=== PATIENT | female | born 1955 | race Caucasian/White ===

== ENCOUNTER → 2016-12-13 | Outpatient (REF) | payer BC ==
[2016-12-13 15:32] LABS: BASO % 0.3 % (0.0-1.0); EOS % 0.6 % (0.0-3.0); LARGE UNSTAINED CELL # 0.1 K/mm3 (0.0-0.4); LARGE UNSTAINED CELL % 1.2 % (0.0-4.0); MEAN CORPUSCULAR HEMOGLOBIN 32.3 pg (27.0-33.0); MEAN CORPUSCULAR VOLUME 97.7 fl (80.0-96.0); MONO # 0.5 K/mm3 (0.0-0.8); MONO % 5.9 % (0.0-5.0); NEUTROPHILS # 5.9 K/mm3 (1.8-7.7); PLATELET COUNT, AUTOMATED 420 k/mm3 (150-450); RED CELL DISTRIBUTION WIDTH 11.9 % (11.5-14.5); WHITE BLOOD COUNT 8.4 K/mm3 (4.0-10.0)
[2016-12-13 15:44] LABS: ANION GAP 5 MEQ/L (8-16); BLOOD UREA NITROGEN 16 MG/DL (7-18); CALCIUM LEVEL 9.2 MG/DL (8.8-10.2); CARBON DIOXIDE LEVEL 29 MEQ/L (21-32); CHLORIDE LEVEL 105 MEQ/L (98-107); CREATININE FOR GFR 0.94 MG/DL (0.55-1.02); GLOMERULAR FILTRATION RATE > 60.0 (>45); GLUCOSE, FASTING 121 MG/DL (80-110); POTASSIUM SERUM 4.4 MEQ/L (3.5-5.1); SODIUM LEVEL 139 MEQ/L (136-145)
== END ==
LOC: M LAB REF 14:47
PROVIDERS: ATTEND Physician Assistant Medical
DX: R91.8 Other nonspecific abnormal finding of lung field (principal)

== ENCOUNTER → 2017-02-16 | Outpatient (CLI) | payer BC ==
[~2017-02-16] MED LIST: ISOVUE-370 76% 100ML VIAL (Q9967) As Ordered ONE
--- NOTE | 2017-02-16 18:11 | REP ---
CT study of the chest with IV contrast: History: New opacities right middle lobe. Comparison chest x-rays from January 09, 2014. CT contrast dose: 75 ml of Isovue [address] findings: There are emphysematous changes in the upper lobes bilaterally, right a little more prominent than left. There is some linear fibrosis in both lower lobes and in the lingular segment of the left upper lobe. There is no evidence of infiltrate, mass lesion or significant nodule. Tracheobronchial tree is unremarkable. No pleural or pericardial effusion is seen. No hilar or mediastinal mass or adenopathy is observed. There are small granular gallstones in the dependent portion of the gallbladder. No adrenal lesion is seen. There is a small simple cyst in the upper pole of the right kidney measuring 1.7 cm. No extrathoracic mass or adenopathy is seen. No bony destructive lesion is seen. Impression: Bibasilar linear fibrotic changes. Emphysematous changes in the upper lobes. Cholelithiasis. Otherwise no significant abnormality. Signed by Jaxson Zhou MD 02/16/2017 07:00 P
== END ==
LOC: M RAD 13:20
PROVIDERS: ATTEND Physician Assistant Medical
DX: J84.10 Pulmonary fibrosis, unspecified (principal); K80.20 Calculus of gallbladder without cholecystitis without obstruction; J43.9 Emphysema, unspecified
CPT/HCPCS: 71260; Q9967

== ENCOUNTER → 2017-06-27 | Outpatient (CLI) | payer BC ==
--- NOTE | 2017-06-27 13:33 | REPMRS ---
Patient History The patient states she had a clinical breast exam in 2016. Patient is postmenopausal, has history of other cancer at age 33, and had first child at age 34. Family history of unknown cancer in brother at age 65. Took hormonal contraceptives for 16 years. Digital Mammo Screening Bilat: June 27, 2017 - Exam #: [id number] Bilateral CC and MLO view(s) were taken. Technologist: Consuelo Potts, Technologist Prior study comparison: June 28, 2016, bilateral digital mammo screening bilat performed at [facility]. June 25, 2015, bilateral digital mammo screening bilat performed at [facility]. FINDINGS: There are scattered fibroglandular densities. There has been no change in the appearance of the mammogram from the prior studies. There is a mild amount of residual fibroglandular tissue which is fairly symmetric. There is no interval development of dominant mass, architectural distortion, or clustered microcalcification suggestive of malignancy. ASSESSMENT: BI-RADS/ACR category 1 mammogram. Negative. Recommendation Routine screening mammogram in 1 year (for women over age 40). This mammogram was interpreted with the aid of an FDA-approved computer-aided dectection system. Electronically Signed By: David Palacios MD 06/27/17 [id number]
== END ==
LOC: M RAD 11:06
DX: Z12.31 Encounter for screening mammogram for malignant neoplasm of breast (principal)

== ENCOUNTER 2018-01-10 15:44 | Emergency (ER) | payer OTHER, BC | END 2018-01-10 18:55 | disposition home or self-care (01) | LOC: M ED 15:44 | DX: S70.02XA Contusion of left hip, initial encounter (principal); S93.401A Sprain of unspecified ligament of right ankle, initial encounter; W18.49XA Other slipping, tripping and stumbling without falling, initial encounter; Y92.410 Unspecified street and highway as the place of occurrence of the external cause; M62.838 Other muscle spasm; M65.262 Calcific tendinitis, left lower leg; Z88.2 Allergy status to sulfonamides; Z88.1 Allergy status to other antibiotic agents; Z87.891 Personal history of nicotine dependence; Z79.899 Other long term (current) drug therapy | CPT/HCPCS: 73610 ==

== ENCOUNTER 2018-01-18 11:42 | Emergency (ER) | payer OTHER, BC ==
[2018-01-18] MEDS: KETOROLAC TROMETHAMINE 10 MG TAB PO (13:25)
== END 2018-01-18 15:21 | disposition home or self-care (01) ==
LOC: M ED 11:42
DX: S86.011A Strain of right Achilles tendon, initial encounter (principal); W19.XXXA Unspecified fall, initial encounter; Y92.480 Sidewalk as the place of occurrence of the external cause; Y93.9 Activity, unspecified; Y99.9 Unspecified external cause status; K21.9 Gastro-esophageal reflux disease without esophagitis; Z87.891 Personal history of nicotine dependence; Z79.899 Other long term (current) drug therapy; Z88.2 Allergy status to sulfonamides
CPT/HCPCS: 73610

== ENCOUNTER → 2018-01-22 | Outpatient (CLI) | payer OTHER, BC | LOC: M RAD 12:30 | DX: S86.011A Strain of right Achilles tendon, initial encounter (principal); X58.XXXA Exposure to other specified factors, initial encounter; Y92.89 Other specified places as the place of occurrence of the external cause; R93.7 Abnormal findings on diagnostic imaging of other parts of musculoskeletal system | CPT/HCPCS: 73721 ==

== ENCOUNTER → 2018-07-05 | Outpatient (CLI) | payer BC | LOC: M RAD 09:42 | DX: Z12.31 Encounter for screening mammogram for malignant neoplasm of breast (principal) | CPT/HCPCS: 77067 ==

== ENCOUNTER → 2018-10-09 | Outpatient (CLI) | payer OTHER ==
[~2018-10-09] MED LIST changes: -ISOVUE-370 76% 100ML VIAL (Q9967) As Ordered ONE; +NAPR-885 PO; +NORCOTAB PO; +SPIR50TA4 PO
--- NOTE | 2018-10-09 16:41 | REP ---
MRI right ankle without contrast: History: Strain of the right Achilles tendon. Rule out incomplete healing. Comparison MRI study of the right ankle is from January 22, 2018. Comparison radiographs are from January 19, 2080. Radiographs in the prior MR study show evidence of severe chronic Achilles tendinosis with multiple foci of ossification within the tendon and at the musculotendinous junction. There was a complete tear between two ossific foci documented radiographically. Technique: Axial, coronal and sagittal imaging planes are utilized for T1 and T2-weighted scans obtained with and without fat saturation in the usual fashion. MRI findings: There is marked thickening of the Achilles tendon again noted. There are three levels of intra substance ossicle formation due to chronic Achilles tendinosis tendonitis change. These are located 1.6, 4.8, and 10 cm above the posterosuperior calcaneal cortex. The complete tear as seen previously was located between the two more proximal foci. The entire Achilles tendon remains rather thickened. There is T2 hyperintense fluid signal in a triangular pattern within the substance of the tendon at the level of the tear site. This signal appears much more organized than previously. The abnormal T2 hyperintense signal area measures 23 mm in craniocaudal span by 6 mm anteroposterior by 7 mm medial to lateral dimension. Surrounding this, there is intact low T1, low T2 signal intensity tendon material. No other fluid signal intensity material is seen in the thickened tendon. The upper portion of the most proximal ossification is not included in the field of view. These two intra-tendon ossicles are by 3.7 cm of vertical span. This is similar to the radiographs from 01/18/2018 and may be slightly increased from the distance on January 22, 2018 MRI (3.1 cm). Impression: Advanced chronic ossific Achilles tendinosis. Status post complete tear in the proximal Achilles tendon. There is residual T2 hyperintense material within the tear site in the Achilles tendon as described above consistent with incomplete healing. Electronically Signed by Jaxson Zhou MD 10/09/2018 07:22 P
== END ==
LOC: M RAD 12:39
PROVIDERS: ATTEND Orthopaedic Surgery
DX: S86.011D Strain of right Achilles tendon, subsequent encounter (principal); X58.XXXA Exposure to other specified factors, initial encounter; Y92.9 Unspecified place or not applicable; Y93.9 Activity, unspecified; Y99.9 Unspecified external cause status; M76.61 Achilles tendinitis, right leg

== ENCOUNTER → 2019-07-07 | Outpatient (REF) | payer BC ==
[~2019-07-07] MED LIST changes: +HYDR-3715 PO; -NORCOTAB PO
[2019-07-11 14:17] LABS: HPV HYBRID CAPTURE II Negative (Negative)
== END ==
LOC: M LAB LCGH 12:18
PROVIDERS: ATTEND Nurse Practitioner Adult Health
DX: Z12.4 Encounter for screening for malignant neoplasm of cervix (principal)
CPT/HCPCS: 87624; G0123

== ENCOUNTER → 2019-07-09 | Outpatient (CLI) | payer BC, OTHER ==
--- NOTE | 2019-07-09 11:12 | REPMRS ---
Patient History The patient states she had a clinical breast exam in 2018. Family history of unknown cancer at age 65 in brother. Took hormonal contraceptives for 16 years. Digital Mammo Screening Bilat: July 09, 2019 - Exam #: [id number] Bilateral CC and MLO view(s) were taken. Technologist: Debra Oneill Technologist Prior study comparison: July 05, 2018, bilateral digital mammo screening bilat performed at [facility]. June 27, 2017, bilateral digital mammo screening bilat performed at [facility]. June 28, 2016, bilateral digital mammo screening bilat performed at [facility]. FINDINGS: There are scattered fibroglandular densities. There has been no change in the appearance of the mammogram from the prior studies. There is a mild amount of scattered fibroglandular density which is fairly symmetric. There is no interval development of dominant mass, architectural distortion, or grouped microcalcification suggestive of malignancy. 3-D tomosynthesis shows no additional findings. Assessment: BI-RADS/ACR category 1 mammogram. Negative Mammogram. Recommendation Routine screening mammogram of both breasts in 1 year (for women over age 40). This patient's Lifetime Breast Cancer Risk is estimated at 9.8 %. This mammogram was interpreted with the aid of an FDA-approved computer-aided dectection system. Electronically Signed By: Donald Zhou MD 07/09/19 [id number]
== END ==
LOC: M RAD 09:50
PROVIDERS: ATTEND Nurse Practitioner Adult Health
DX: Z12.31 Encounter for screening mammogram for malignant neoplasm of breast (principal); Z79.899 Other long term (current) drug therapy; Z80.9 Family history of malignant neoplasm, unspecified

== ENCOUNTER → 2020-08-05 | Outpatient (CLI) | payer BC ==
--- NOTE | 2020-08-05 16:16 | REPMRS ---
Patient History The patient states she had a clinical breast exam in August 2020.Family history of unknown cancer at age 65 in brother. Took hormonal contraceptives for 16 years. Digital Woman Screen Mammo: August 05, 2020 - Exam #: [id number] Bilateral CC and MLO view(s) were taken. Technologist: Zoe Carr, Technologist Prior study comparison: July 09, 2019, bilateral digital mammo screening bilat, performed at [facility]. July 05, 2018, bilateral digital mammo screening bilat, performed at [facility]. June 27, 2017, bilateral digital mammo screening bilat, performed at [facility]. FINDINGS: The breast tissue is almost entirely fat. The Volpara volumetric breast density category is: A. There has been no change in the appearance of the mammogram from the prior studies. There is no interval development of dominant mass, architectural distortion, or grouped microcalcification typical of malignancy. 3-D tomosynthesis shows no additional findings. Assessment: BI-RADS/ACR category 1 mammogram. Negative Mammogram. Recommendation Routine screening mammogram of both breasts in 1 year (for women over age 40). This patient's [facility] Lifetime Breast Cancer RIsk is estimated at 9.4 %. This mammogram was interpreted with the aid of an FDA-approved computer-aided dectection system. Electronically Signed By: Donald Zhou MD 08/05/20 [id number]
== END ==
LOC: M WHC 13:54
PROVIDERS: ATTEND Nurse Practitioner Family
DX: Z12.31 Encounter for screening mammogram for malignant neoplasm of breast (principal)

== ENCOUNTER → 2020-12-23 | Outpatient (REF) | LOC: M LABSMTC 11:14 | PROVIDERS: ATTEND Pediatrics | DX: Z11.52 Encounter for screening for COVID-19 (principal) ==

== ENCOUNTER → 2021-02-03 | Outpatient (CLI) | payer BC ==
[2021-02-03 06:55] LABS: HEMATOCRIT 38.5 % (36.0-47.0); HEMOGLOBIN 12.7 g/dl (12.0-15.5); MEAN CORPUSCULAR HEMOGLOBIN 33.1 pg (27.0-33.0); MEAN CORPUSCULAR VOLUME 100.3 fl (80.0-96.0); PLATELET COUNT, AUTOMATED 432 10^3/uL (150-450); RED BLOOD COUNT 3.84 10^6/uL (4.00-5.40); WHITE BLOOD COUNT 9.4 10^3/uL (4.0-10.0)
[2021-02-03 07:30] LABS: ALBUMIN 3.6 GM/DL (3.2-5.2); BILIRUBIN,TOTAL 0.3 MG/DL (0.2-1.0); CALCIUM LEVEL 9.4 MG/DL (8.8-10.2); CHOLESTEROL RISK RATIO 3.354 (<5); CREATININE FOR GFR 1.05 MG/DL (0.55-1.30); GLOMERULAR FILTRATION RATE 56.2 (>45); POTASSIUM SERUM 4.8 MEQ/L (3.5-5.1); THYROID STIMULATING HORMONE 5.69 uIU/ML (0.358-3.740); TOTAL PROTEIN 7.7 GM/DL (6.4-8.2)
--- NOTE | 2021-02-03 08:00 | REP ---
INDICATION: COPD COMPARISON: 01/09/2014 TECHNIQUE: PA and lateral. FINDINGS: The mediastinum and cardiac silhouette are normal. The lung goldstein are clear and without acute consolidation, effusion, or pneumothorax. The skeletal structures are intact and normal. IMPRESSION: No acute cardiopulmonary process. <Electronically signed by Ernesto Loving > 02/03/21 0753
[2021-02-03 09:42] LABS: HEMOGLOBIN A1c 5.8 %
[2021-02-03 10:34] LABS: TOTAL 25(OH) VITAMIN D 28.4 NG/ML (30.0-100.0)
== END ==
LOC: M LAB 05:59
PROVIDERS: ATTEND Family Medicine
DX: J44.9 Chronic obstructive pulmonary disease, unspecified (principal); R53.83 Other fatigue; E03.9 Hypothyroidism, unspecified

== ENCOUNTER → 2021-03-31 | Outpatient (CLI) | payer BC ==
[2021-03-31 07:26] LABS: HEMOGLOBIN A1c 5.9 %
[2021-03-31 07:32] LABS: THYROID STIMULATING HORMONE 11.5 uIU/ML (0.358-3.740)
[2021-03-31 08:06] LABS: TOTAL 25(OH) VITAMIN D 30.9 NG/ML (30.0-100.0)
== END ==
LOC: M LAB 06:16
PROVIDERS: ATTEND Family Medicine
DX: R53.83 Other fatigue (principal); E03.9 Hypothyroidism, unspecified

== ENCOUNTER → 2021-08-09 | Outpatient (REF) | payer BC | LOC: M SFHCWAGY 13:07 | PROVIDERS: ATTEND Nurse Practitioner Women's Health | DX: Z12.4 Encounter for screening for malignant neoplasm of cervix (principal); Z77.9 Other contact with and (suspected) exposures hazardous to health; N88.8 Other specified noninflammatory disorders of cervix uteri | CPT/HCPCS: 87624; G0123 ==

== ENCOUNTER → 2021-08-09 | Outpatient (CLI) | payer BC ==
--- NOTE | 2021-08-09 12:35 | REPMRS ---
Patient History The patient states she had a clinical breast exam in August 09, 2021. Patient is postmenopausal, has history of other cancer at age 33, and had first child at age 34. No known family history of cancer. Took hormonal contraceptives for 16 years. complaints today. Patient has signed MRS History Sheet. Digital Woman Screen Mammo: August 09, 2021 - Exam #: [id number] Bilateral CC and MLO view(s) were taken. Technologist: RT Ana Prior study comparison: August 05, 2020, bilateral digital woman screen mammo performed at [facility]. July 09, 2019, bilateral digital mammo screening bilat, performed at [facility]. FINDINGS: The breast tissue is almost entirely fat. Screening. Digital screening (2D) mammography was performed bilaterally in the CC and MLO projections. Additionally, breast tomosynthesis (3D mammography) was performed bilaterally in the CC and MLO projections. Todays exam was compared to the prior exam/exams. By history, the patient has no complaints of a palpable breast abnormality or other significant breast complaints. The Volpara volumetric breast density category is A, the breasts are almost entirely fatty. The breasts are unchanged in size and shape. There are stable, benign, intramammary lymph nodes, on the left. There are no arnel-soft tissue densities or spiculated masses. There is no internal architectural distortion. There are no suspicious arnel-calcific clusters. Skin thickening or nipple retraction is not present. IMPRESSION: BI-RADS Category 2- Benign Findings. There is no evidence of malignant alteration of the breasts. Followup examination recommended in one year. This mammogram [facility],an FDA approved computer aided detection system for mammography. The lifetime Tyrer-Cuzick score is 9.0% Negative x-ray reports should not delay surgical consultation if a dominant or clinically suspicious mass is present. Not all breast cancers can be identified by mammography. Therefore, we recommend that you continue to perform regular breast self-examination and physical examination and then promptly contact your physician of any concerns or changes. Adenosis and dense breasts may obscure an underlying neoplasm. No significant changes when compared with prior studies. Assessment: BI-RADS/ACR category 2 mammogram. Benign Findings. Recommendation Routine screening mammogram of both breasts in 1 year. Electronically Signed By: Neo Shahid MD 08/09/21 [id number]
== END ==
LOC: M WHC 10:07
PROVIDERS: ATTEND Nurse Practitioner Women's Health
DX: Z12.31 Encounter for screening mammogram for malignant neoplasm of breast (principal)

== ENCOUNTER → 2022-02-01 | Outpatient (CLI) | payer BC ==
[2022-02-01 11:55] LABS: HEMATOCRIT 39.1 % (36.0-47.0); HEMOGLOBIN 12.7 g/dl (12.0-15.5); MEAN CORPUSCULAR HEMOGLOBIN 32.2 pg (27.0-33.0); MEAN CORPUSCULAR HGB CONC 32.5 g/dl (32.0-36.5); PLATELET COUNT, AUTOMATED 409 10^3/uL (150-450); RED BLOOD COUNT 3.95 10^6/uL (4.00-5.40); WHITE BLOOD COUNT 7.4 10^3/uL (4.0-10.0)
[2022-02-01 12:27] LABS: ALBUMIN 3.7 GM/DL (3.2-5.2); BILIRUBIN,TOTAL 0.4 MG/DL (0.2-1.0); CALCIUM LEVEL 10.1 MG/DL (8.8-10.2); CREATININE FOR GFR 1.08 MG/DL (0.55-1.30); GLOMERULAR FILTRATION RATE 54.2 (>45); POTASSIUM SERUM 4.5 MEQ/L (3.5-5.1); THYROID STIMULATING HORMONE 1.06 uIU/ML (0.358-3.740); TOTAL PROTEIN 7.6 GM/DL (6.4-8.2)
[2022-02-01 14:09] LABS: HEMOGLOBIN A1c 5.8 %
== END ==
LOC: M RAD 10:29
PROVIDERS: ATTEND Family Medicine
DX: I10 Essential (primary) hypertension (principal); R53.83 Other fatigue

== ENCOUNTER 2022-05-09 09:58 | Emergency (ER) | payer BC ==
[~2022-05-09] VITALS: Ht 162.6 cm; Wt 69.5 kg
[2022-05-09 13:50] VITALS: BP 124/68
== END 2022-05-09 13:55 | disposition home or self-care (01) ==
LOC: M ED 09:58
DX: N81.3 Complete uterovaginal prolapse (principal); Z88.2 Allergy status to sulfonamides; Z79.899 Other long term (current) drug therapy

== ENCOUNTER → 2022-08-20 | Outpatient (CLI) | payer BC ==
[~2022-08-20] MED LIST changes: +CEPH500C PO; +PRED10PA PO; +SYNT88TA2 PO
== END ==
LOC: M LABSMTC 10:29
PROVIDERS: ATTEND Anesthesiology
DX: Z01.812 Encounter for preprocedural laboratory examination (principal); Z11.52 Encounter for screening for COVID-19

== ENCOUNTER 2022-08-23 10:31 | Day surgery (SDC) | payer BC ==
[~2022-08-23] VITALS: Ht 162.6 cm; Wt 68.4 kg
[~2022-08-23 10:31] MED LIST changes: +LR 1,000 ML IV SCH; +ceFAZolin SOD 2 GM in IV 1 EA IV ONE
[2022-08-23] MEDS ORDERED: LR 1,000 ML IV SCH ×2 (11:00→14:25)
[2022-08-23] MEDS ORDERED: PERC5TAB12 PO (11:02)
[2022-08-23 11:20] LABS: HEMATOCRIT 41.7 % (36.0-47.0); HEMOGLOBIN 13.7 g/dl (12.0-15.5); MEAN CORPUSCULAR HEMOGLOBIN 32.5 pg (27.0-33.0); MEAN CORPUSCULAR HGB CONC 32.9 g/dl (32.0-36.5); PLATELET COUNT, AUTOMATED 429 10^3/uL (150-450); RED BLOOD COUNT 4.21 10^6/uL (4.00-5.40); WHITE BLOOD COUNT 7.1 10^3/uL (4.0-10.0)
[2022-08-23 11:45] LABS: CALCIUM LEVEL 9.9 MG/DL (8.3-10.6); GLOMERULAR FILTRATION RATE 59.1 (>45); POTASSIUM SERUM 4.6 MMOL/L (3.5-5.1)
[2022-08-23] MEDS ORDERED: fentaNYL 100 MCG/2 ML INJECTION As Ordered ONE ×2 (11:57→14:36)
[2022-08-23] MEDS ORDERED: propofoL 200 MG/20 ML VIAL As Ordered ONE (11:57)
[2022-08-23] MEDS ORDERED: MIDAZOLAM INJ 2MG/2ML VIAL As Ordered ONE (11:57)
[2022-08-23] MEDS ORDERED: ONDANSETRON 4MG 2ML VIAL As Ordered ONE (11:58)
[2022-08-23] MEDS ORDERED: LIDOCAINE 2% 100MG/5ML SDV (FOR ANES.) As Ordered ONE (11:58)
[2022-08-23] MEDS ORDERED: VASOPRESSIN INJ 20UNITS/ML 1ML VIAL As Ordered ONE (13:06)
[2022-08-23] MEDS ORDERED: ePHEDrine SULFATE 25 MG/5 ML(5MG/ML) SYRINGE As Ordered ONE (13:38)
[2022-08-23] MEDS ORDERED: HYDROmorphone HCL 2MG/ML 1ML VIAL As Ordered ONE (13:52)
[2022-08-23] MEDS ORDERED: HYDROMORPHONE HCL 0.5 MG/ 0.5 ML SYRINGE IV PRN (14:25)
[2022-08-23] MEDS ORDERED: oxyCODONE 5MG TAB PO PRN (14:25)
[2022-08-23] MEDS ORDERED: ONDANSETRON 4MG 2ML VIAL IV PRN (14:25)
[2022-08-23] MEDS: fentaNYL 100 MCG/2 ML INJECTION IV PRN ×4 (14:38→14:54)
[2022-08-23] MEDS ORDERED: ESMOLOL INJ 100MG/10ML VIAL As Ordered ONE (15:13)
[2022-08-23 17:08] VITALS: BP 111/60
== END 2022-08-23 17:08 | disposition home or self-care (01) ==
LOC: UNDOADMIN 10:31 → M OR 10:31 → M SDC 10:31 → EDSTATUS 14:25 → M SDC 17:08
PROVIDERS: ADMIT Obstetrics & Gynecology; ATTEND Obstetrics & Gynecology
DX: N81.2 Incomplete uterovaginal prolapse (principal); E03.9 Hypothyroidism, unspecified; K21.9 Gastro-esophageal reflux disease without esophagitis; R51.9 Headache, unspecified; Z87.891 Personal history of nicotine dependence; Z79.899 Other long term (current) drug therapy; Z88.2 Allergy status to sulfonamides
CPT/HCPCS: 36415; 57250; 58260; 80048; 85027; 86850; 86900; 86901; 88302; 88307; J0690; J1100; J1170; J2250; J2405; J3010

== ENCOUNTER → 2022-10-25 | Outpatient (REF) | payer BC ==
[~2022-10-25] MED LIST changes: -LR 1,000 ML IV SCH; +PERC5TAB12 PO; -ceFAZolin SOD 2 GM in IV 1 EA IV ONE
== END ==
LOC: M LAB REF 16:15
PROVIDERS: ATTEND Obstetrics & Gynecology
DX: R30.0 Dysuria (principal); M54.50 Low back pain, unspecified

== ENCOUNTER → 2023-05-23 | Outpatient (CLI) | payer BC | LOC: M WHC 10:59 | PROVIDERS: ATTEND Family Medicine | DX: Z12.31 Encounter for screening mammogram for malignant neoplasm of breast (principal) ==

== ENCOUNTER → 2023-07-04 | Outpatient (CLI) | payer BC ==
[2023-07-04 11:30] LABS: HEMATOCRIT 39.2 % (36.0-47.0); HEMOGLOBIN 12.9 g/dl (12.0-15.5); MEAN CORPUSCULAR HEMOGLOBIN 33.1 pg (27.0-33.0); MEAN CORPUSCULAR HGB CONC 32.9 g/dl (32.0-36.5); MEAN CORPUSCULAR VOLUME 100.5 fl (80.0-96.0); PLATELET COUNT, AUTOMATED 450 10^3/uL (150-450); WHITE BLOOD COUNT 7.5 10^3/uL (4.0-10.0)
[2023-07-04 11:49] LABS: HEMOGLOBIN A1c 5.4 % (4.0-6.0)
[2023-07-04 12:05] LABS: ALBUMIN 3.6 G/DL (3.2-5.2); BILIRUBIN,TOTAL 0.5 MG/DL (0.3-1.2); CALCIUM LEVEL 9.9 MG/DL (8.3-10.6); CHOLESTEROL RISK RATIO 3.52 (<5); CREATININE FOR GFR 1.05 MG/DL (0.55-1.30); GLOMERULAR FILTRATION RATE 55.7 (>45); HDL CHOLESTEROL 73.5 MG/DL (>40); LDL CHOLESTEROL 149.3 MG/DL (<100); NON-HDL-C 185.5 MG/DL; POTASSIUM SERUM 4.7 MMOL/L (3.5-5.1); TOTAL PROTEIN 7.1 G/DL (5.7-8.2)
[2023-07-04 12:06] LABS: THYROID STIMULATING HORMONE 0.723 uIU/ML (0.55-4.78); TOTAL 25(OH) VITAMIN D 33.3 NG/ML (20.0-100.0)
== END ==
LOC: M LAB 10:10
PROVIDERS: ATTEND Family Medicine
DX: D64.9 Anemia, unspecified (principal); R53.83 Other fatigue; E03.9 Hypothyroidism, unspecified

== ENCOUNTER → 2024-05-29 | Outpatient (CLI) | payer BC | LOC: M WHC 15:50 | PROVIDERS: ATTEND Family Medicine | DX: Z12.31 Encounter for screening mammogram for malignant neoplasm of breast (principal) ==

== ENCOUNTER → 2025-05-13 | Outpatient (REF) | payer BC ==
[2025-05-13 18:42] LABS: CHOLESTEROL LEVEL 260.0 MG/DL (<200); CHOLESTEROL RISK RATIO 3.86 (<5); LDL CHOLESTEROL 152.5 MG/DL (<100); NON-HDL-C 192.7 MG/DL; TRIGLYCERIDES LEVEL 201.0 MG/DL (<150)
[2025-05-13 18:45] LABS: FREE T4 1.41 NG/DL (0.89-1.76)
== END ==
LOC: M SFHCADAM 11:40
PROVIDERS: ATTEND Family Medicine
DX: R94.6 Abnormal results of thyroid function studies (principal); E78.5 Hyperlipidemia, unspecified

== ENCOUNTER → 2025-05-20 | Outpatient (CLI) | payer BC | LOC: M PLAIMG 12:01 | PROVIDERS: ATTEND Family Medicine | DX: M79.601 Pain in right arm (principal) ==

== ENCOUNTER → 2025-06-04 | Outpatient (CLI) | payer BC | LOC: M WHC 11:28 | PROVIDERS: ATTEND Family Medicine | DX: Z12.31 Encounter for screening mammogram for malignant neoplasm of breast (principal) ==

== ENCOUNTER → 2025-07-15 | Outpatient (CLI) | payer BC | LOC: M RAD 12:48 | PROVIDERS: ATTEND Family Medicine | DX: Z87.891 Personal history of nicotine dependence (principal) ==

== ENCOUNTER → 2025-08-07 | Outpatient (CLI) | payer BC | LOC: M PLAIMG 07:36 | PROVIDERS: ATTEND Family Medicine | DX: R01.1 Cardiac murmur, unspecified (principal) ==